=== PATIENT | female | born 1990 ===

== ENCOUNTER 2022-01-02 07:23 | Emergency (ER) | payer SELFPAY ==
[~2022-01-02] VITALS: Ht 152.4 cm; Wt 54.4 kg
[2022-01-02] MEDS ORDERED: SODIUM CHLORIDE 0.9% 2,000 ML IV ONE (07:45)
[2022-01-02 08:09] LABS: Basophils # (auto) 0 10 ^3/uL (0-0.2); Basophils % (auto) 0.6 % (0.0-2.0); Eosinophils # (auto) 0.1 10 ^3/uL (0-0.8); Eosinophils % (auto) 1.3 % (0.0-7.0); Hematocrit 32.4 % (36.0-46.0); Hemoglobin 10.5 g/dL (12.2-16.2); Lymphocytes # (auto) 0.4 10 ^3/uL (0.4-5.4); Lymphocytes % (auto) 7.3 % (10.0-50.0); Mean Corpuscular Hemoglobin 29.3 pg (28.0-32.0); Mean Corpuscular Hgb Conc. 32.3 g/dL (32.0-36.0); Mean Corpuscular Volume 90.6 fL (80.0-100.0); Monocytes # (auto) 0.3 10 ^3/uL (0-1.3); Monocytes % (auto) 5.4 % (0.0-12.0); Neutrophils # (auto) 4.6 10 ^3/uL (1.6-8.6); Neutrophils % (auto) 85.4 % (37.0-80.0); Red Blood Cells 3.57 10^6/uL (4.0-5.20); Red Cell Distribution Width 14.6 % (11.8-14.3); White Blood Cell 5.4 10^3/uL (4.4-10.8)
[2022-01-02] MEDS ORDERED: InsuLIN REG 1unit/0.01ml Soln (100units/ml) IV ONE (08:30)
[2022-01-02] MEDS ORDERED: ONDANSETRON HCL 4 MG/2 ML VIAL IV ONE (08:30)
[2022-01-02 08:34] LABS: Albumin 2.5 g/dL (3.4-5.0); Calcium 8.1 mg/dL (8.5-10.1); Potassium 4.9 mmol/L (3.5-5.1)
[2022-01-02] MEDS ORDERED: ACETAMINOPHEN 325 MG TAB PO ONE (08:45)
[2022-01-02 08:54] LABS: BUN/Creatinine Ratio 30.1; Bilirubin, Total 0.1 mg/dL (0.2-1.0); Total Protein 6.1 g/dL (6.4-8.2)
[2022-01-02 09:35] LABS: Urine Bacteria NONE SEEN /hpf (None Seen); Urine Blood Negative /uL (Negative); Urine Specific Gravity 1.015 (1.001-1.035); Urine WBC <1 /hpf (0 - 5)
[2022-01-02] MEDS ORDERED: LACTATED RINGER'S 1,000 ML IV ONE (10:30)
[2022-01-02] MEDS ORDERED: LIDOCAINE VISCOUS 2% 15ML UD PO ONE (12:45)
[2022-01-02] MEDS ORDERED: ALUM & MAG HYDROX-SIMETH LIQ(MAALOX) 30 ML PO ONE (12:45)
[2022-01-02] MEDS ORDERED: FAMOTIDINE 20 MG TAB PO ONE (12:45)
[2022-01-02 14:04] VITALS: BP 138/90
[2022-01-02] MEDS ORDERED: IBUP200C3 PO (14:13)
[2022-01-02] MEDS ORDERED: dilTIAZem HCL 60 MG TAB PO ONE (14:30)
[2022-01-02] MEDS ORDERED: dilTIAZem 25 MG/5 ML VIAL IV ONE (14:30)
== END 2022-01-02 14:38 | disposition home or self-care (01) ==
LOC: EDBD 07:23 → ER 07:23
DX: E11.65 Type 2 diabetes mellitus with hyperglycemia (principal); B34.9 Viral infection, unspecified; R74.01 Elevation of levels of liver transaminase levels
CPT/HCPCS: 36415; 36600; 71045; 76705; 80053; 81001; 81025; 82010; 82805; 82962; 83690; 83880; 84484; 85025; 87426; 96361; 96374; 96375; 99285; J1815; J2405; J7030; 93005